=== PATIENT | female | born 2000 | race Caucasian/White ===

== ENCOUNTER 2023-09-16 08:20 | Outpatient (REF) | payer OTHER, SELFPAY ==
--- NOTE | ~2023-09-16 | US_ITS ---
EXAMINATION: US PELVIS CLINICAL INFORMATION: Irregular menses: IUD check LMP 2-3 weeks ago COMPARISON: None available. TECHNIQUE: Ultrasound of the pelvis is performed using both transabdominal and transvaginal transducers along with Doppler. Transvaginal imaging is performed due to inadequate visualization transabdominally. FINDINGS: Uterus: The uterus is anteverted and measures 8.0 x 3.0 x 4.5 cm. The endometrial thickness is 0.5 cm The IUD is low lying. It is not extend to the fundal aspect of the uterus. The uterus is smooth in contour and has normal myometrial echogenicity. No visible fibroid. Adnexa: Both ovaries are enlarged. There is normal color flow to the adnexa. There is no ovarian torsion. There is no pelvic ascites or fluid collection. Right ovary measures 4.0 x 2.5 x 2.5 cm. Volume 13.1 mL. Left ovary measures 3.0 x 3.7 x 2.5 cm. Volume 14.5 mL. Both ovaries are enlarged and contain multiple subcentimeter peripheral follicles which raises concern for polycystic ovary syndrome. US/US pelvic and transvaginal IMPRESSION: 1. Low-lying IUD. 2. Enlarged ovaries with multiple subcentimeter peripheral follicles which raises concern for polycystic ovary syndrome. At the time of this dictation, PSA service was contacted to alert the referring M.D. of critical findings.
== END 2023-09-16 08:21 | disposition home or self-care (01) ==
LOC: HO.UMASIMG 08:20
PROVIDERS: Visit Provider Registered Nurse
DX: N92.6 Irregular menstruation, unspecified (principal)
CPT/HCPCS: 76830; 76856